=== PATIENT | male | born 1965 | race Caucasian/White ===

== ENCOUNTER 2017-01-13 11:06 | Emergency (ER) | payer BC ==
[~2017-01-13] VITALS: Ht 177.8 cm; Wt 91.5 kg
[~2017-01-13 11:06] MED LIST: CYANOCOBALAM1000 MCG PO; FIORICET 50-301 EACH PO; OMEPRAZOLE20 M2 PO; PRAVASTATIN SOD40 MG PO
[2017-01-13 11:42] LABS: HEMATOCRIT 46.5 % (38.0-50.0); MCHC 34.4 G/DL (30.0-36.0); MCV 87.2 FL (86-99); MEAN PLAT.VOLUME 8.7 uM^3 (9.0-12.4); PLATELET COUNT 166 K/uL (156-360); RBC DIS.WIDTH-CV 11.9 % (11.8-14.6); RED BLOOD COUNT 5.33 M/uL (4.00-5.50); WHITE BLOOD COUNT 11.2 K/uL (4.1-10.2)
[2017-01-13 11:48] LABS: ADD MIUA? YES; BILIRUBIN NEGATIVE; BLOOD SMALL; COLOR YELLOW ((YELLOW)); GLUCOSE (STRIP) NEGATIVE; KETONES 20; LEUKOCYTES NEGATIVE; NITRITE NEGATIVE; PROTEIN (STRIP) 30; SPECIFIC GRAVITY 1.016 (1.000-1.030)
[2017-01-13 11:52] LABS: INTER. NORMALIZED RATIO 1.2
[2017-01-13 11:53] LABS: CHLORIDE 102 mEq/L (99-109); POTASSIUM 3.6 mEq/L (3.7-5.4); SODIUM 138 mEq/L (136-147)
[2017-01-13 11:56] LABS: GLUCOSE 109 mg/dL (70-99)
[2017-01-13 11:57] LABS: ANION GAP 14 MEQ/L (2-14)
[2017-01-13 11:59] LABS: ALKALINE PHOSPHATASE 121 IU/L (3-129); GFR ESTIMATE (CALCULATED) > 59 mL/min/
[2017-01-13 12:00] LABS: UREA NITROGEN (BUN) 15 mg/dL (9-23)
[2017-01-13 12:03] LABS: TROP-I INTERPRETATION NEGATIVE; TROPONIN-I 0.04 ng/mL (0.0-0.30)
[2017-01-13 12:04] LABS: BACTERIA NONE SEEN /HPF; EPITHELIAL CELLS NONE SEEN /HPF; MUCUS TRACE /LPF; RED BLOOD CELLS 0-5 /HPF (0-5); UCUL ADDED? NO; WHITE BLOOD CELLS 0-5 /HPF (0-5)
[2017-01-13 14:56] VITALS: BP 124/94
== END 2017-01-13 14:59 | disposition short-term general hospital (02) ==
LOC: EME 11:06
PROVIDERS: Emergency Medicine
DX: I26.92 Saddle embolus of pulmonary artery without acute cor pulmonale (principal); I51.9 Heart disease, unspecified; R00.0 Tachycardia, unspecified; Z98.890 Other specified postprocedural states; J45.909 Unspecified asthma, uncomplicated; K21.9 Gastro-esophageal reflux disease without esophagitis; Z90.49 Acquired absence of other specified parts of digestive tract
CPT/HCPCS: 71275; 80053; 81003; 84484; 85027; 85610; 85730; 93005; 99281; 99285